=== PATIENT | male | born 1955 | race Hispanic/Latino ===

== ENCOUNTER 2021-02-08 10:23 | Emergency (ER) | payer BC, SELFPAY ==
--- NOTE | ~2021-02-08 | XR_ITS ---
EXAMINATION: XR chest 2V EXAM DATE: 02/08/2021 11:14 INDICATION: Cough, tachycardia. TECHNIQUE: Frontal and lateral projections of the chest obtained and reviewed. There is no prior jo ann dy for comparison. FINDINGS: Small amount of ill-defined right midlung zone and left lower lung zone airspace disease, probably developing pneumonia. Please clinically correlate. No pneumothorax or pleural effusion. Card iomediastinal silhouette is normal. Mild thoracic scoliosis. Old right rib fracture. IMPRESSION: Small amount of airspace disease bilaterally, probably developing pneumonia. Reviewed, dictated and finalized at location A.
--- NOTE | 2021-02-08 10:41 | ED.GENADULT ---
HPI - General Adult General Chief complaint: Upper Respiratory Infection Stated complaint: Chills/Fever/Body Aches/Cough Time Seen by Provider: 02/08/21 10:41 Source: patient Mode of arrival: ambulatory Limitations: no limitations History of Present Illness HPI narrative: 65-year-old male patient presents to the [facility] with complaints of cold symptoms that started last night. Patient states he woke up in the middle of the night about 12 to 1:00 in the morning and had chills. Patient states he felt very cold and was little sweaty. Patient denies any fevers that he is aware of the states he has not been taking his temperature. Patient states he has had a little bit of a cough and is feeling very fatigued and tired. Patient denies any ear pain, runny nose, stuffy nose or sore throat. Denies any chest pain or shortness of breath at this time. Patient denies any medical history besides arthritis. Patient denies taking any medications today. Patient denies any Covid diagnosis in the last 3 months. Denies being around anybody with Covid that he is aware of. Denies getting a Covid vaccination. Patient denies getting a flu vaccination this year. Related Data Home Medications Medication Instructions Recorded Confirmed etanercept [Enbrel SureClick] 50 mg SUBCUT [id number] 02/08/21 02/08/21 ibuprofen 800 mg PO DAILY 02/08/21 02/08/21 prednisone 5 mg PO 02/08/21 Allergies Allergy/AdvReac Type Severity Reaction Status Date / Time No Known Allergies Allergy Verified 02/08/21 11:04 Review of Systems Review of Systems: Narrative: CONSTITUTIONAL: Denies fever, positive chills, and sweats. EYES: Denies visual changes, redness, or discharge. ENT: Negative rhinorrhea, congestion, sore throat, or otalgia. CARDIOVASCULAR: Denies chest pain, palpitations, or edema. RESPIRATORY: Positive mild cough, denies dyspnea. GASTROINTESTINAL: Denies abdominal pain, nausea, vomiting, or diarrhea. GENITOURINARY: Denies dysuria or hematuria. SKIN: Denies rash or itching. MUSCULOSKELETAL: Denies back pain, joint pain, or myalgia. NEUROLOGIC: Denies headache, numbness, or weakness. Positive for fatigue PSYCHIATRIC: Denies anxiety or depression. [facility] Past Medical History Medical History (Updated 02/08/21 @ 11:31 by JASON Reynolds) Arthritis Exam Narrative: Exam Narrative: GENERAL: Well-appearing, well-nourished, and in no acute distress. HEAD: Normocephalic, atraumatic. EYES: PERRLA and EOMI. ENT: Nares clear, no rhinorrhea or epistaxis. Mucous membranes moist. Bilateral TMs are clear with no erythema or foreign bodies in the canal. Posterior pharynx with no erythema, tonsillar edema, exudates or lesions present. NECK: Supple. No lymphadenopathy CHEST: Clear to auscultation. No respiratory distress. Patient able talk clear complete sentences. No tripoding noted. HEART: Regular rate and rhythm. No murmur heard. Normal peripheral pulses. ABDOMEN: Soft, nontender, nondistended, normal active bowel sounds. EXTREMITIES: Normal range of motion. No edema. SKIN: Warm, dry, no rash. NEURO: No focal deficits. Alert and oriented x3. Course Reevaluation(s) Reevaluation #1: Reevaluated patient after his x-ray resulted. Discussed with him that it does appear that he has bilateral pneumonia. Discussed with him that his rapid Covid test came back negative however given his symptoms and the likelihood that he has bilateral pneumonia I think that he most likely does have COVID-19 and needs to treat himself as if he does have COVID-19. Discussed with patient that he needs to remain isolated and I am going to send him home with an antibiotic, an inhaler and some steroids for his symptoms. Discussed with patient he needs to keep a close eye on his symptoms because he can definitely get worse and if he has severe chest pain or shortness of breath I would advise him go the ER for further evaluation. Discussed with patient he does not appear to be in any di
[2021-02-08 10:48] VITALS: BP 124/82; PULSE 143; RESP 20; TEMP 37.1; O2SAT 94
--- NOTE | 2021-02-08 10:56 | ECG_ITS ---
Measurements Intervals [place] Rate: 131 P: 49 RI: 141 QRS: 10 QRSD: 104 T: 23 QT: 323 QTc: 477 Interpretive Statements SINUS TACHYCARDIA MINIMAL Q WAVES- INFERIOR LEADS ABNORMAL ECG Electronically Signed On 02-08-2021 11:32:39 CDT by Malik Hensley D.O.
[2021-02-08 11:25] VITALS: PULSE 125; RESP 22; O2SAT 94
[2021-02-09 19:22] LABS: SARS-CoV-2 RNA PCR Negative
== END 2021-02-08 11:44 | disposition home or self-care (01) ==
PROVIDERS: Emergency Provider Nurse Practitioner Family; PCP Internal Medicine
DX: J18.9 Pneumonia, unspecified organism (principal); Z20.822 Contact with and (suspected) exposure to COVID-19; M19.90 Unspecified osteoarthritis, unspecified site
CPT/HCPCS: 71046; 87426; 93005; 99204; C9803; G0463; U0003; U0005